=== PATIENT | female | born 1990 | race American Indian/Alaskan Native ===

== ENCOUNTER 2020-11-29 15:20 | Emergency (ER) | payer BC ==
[2020-11-29] MEDS ORDERED: methylPREDNISolone Sod Succinate 125 MG/2 ML INJ IV ONE (15:21)
[2020-11-29] MEDS ORDERED: diphenhydrAMINE 50 MG/ML VIAL IV ONE (15:21)
[2020-11-29] MEDS ORDERED: FAMOTIDINE 20 MG/2 ML INJ IV ONE (15:21)
[2020-11-29] MEDS ORDERED: EPINEPHrine/PF 1 MG/1 ML INJ IM ONE (15:23)
--- NOTE | 2020-11-29 15:26 | Event Note ---
ED Screening Note Date of service: 11/29/20 Time: 15:24 ED Screening Note: 30-year-old female patient with history of severe peanut allergy requiring EpiPen administration presents to the emergency department with complaints of itching and facial swelling after accidentally ingested peanut sauce 2 hours ago. Patient does not have her EpiPen with her. She took Benadryl 1 hour ago with limited relief. Tachycardic in triage. General: Awake, appropriately interactive, no acute distress. HEENT: Uvula is midline and nonedematous. Tongue appears slightly enlarged however she is protecting her airway, speaking in full sentences without difficulty. Facial swelling with minimal overlying erythema. Neck: Supple. Full range of motion intact. Cardiovascular: Tachycardic. Normal peripheral perfusion. Pulmonary: No respiratory distress. No wheezing or stridor. Neurological: No facial asymmetry. Speech is clear. Follows commands. Patient is alert and oriented. Musculoskeletal: Moves all four extremities spontaneously with normal range of motion. Psych: Cooperative. Appropriate mood and affect. Epinephrine, steroids, and histamine blockers ordered immediately following medical screening examination. I have greeted and performed a focused rapid initial assessment of this patient. A comprehensive ED assessment and evaluation of the patient, analysis of all test results, and completion of the medical decision-making process will be conducted by additional ED providers. This initial assessment/diagnostic orders/clinical plan/treatment(s) is/are subject to change based on patients health status, clinical progression and re-assessment. Further treatment and workup at subsequent clinical provider's discretion. Patient/guardian urged not to elope from the ED as their condition may be serious if not clinically assessed and managed.
--- NOTE | 2020-11-29 16:20 | Emergency Department Report ---
ED Allergic Reaction HPI - General Chief complaint: Allergic Reaction Stated complaint: ALLERGIC REACTION Time Seen by Provider: 11/29/20 16:03 Source: patient Mode of arrival: Ambulatory Limitations: No Limitations - History of Present Illness Initial Comments: 30 year old female with known allergy to peanuts presents to ED with complaints of having allergic reaction. Patient states that today around 1pm she started with allergic reaction after eating food that contained peanut oil. She states her co worker ordered food and she was not aware that the salad dressing contained peanut oil and immediately after eating it she started breaking out in hives and throat was itching. She states she took 1 benadryl as well as 3 "gulps" of children's benadryl but despite that she continued to develop more symptoms including dry cough, wheezing and sensation her throat was closing and so she decided to come to hospital. Patient states her epi pen is . Complaint: allergic reaction, hives -: Sudden (about 1pm this afternoon ) - Related Data Previous Rx's Medication Instructions Recorded Last Taken Type Famotidine [Pepcid] 20 mg PO BID #10 tablet 11/29/20 Unknown Rx diphenhydrAMINE [Benadryl CAP] 25 - 50 mg PO Q6HR PRN #30 capsule 11/29/20 Unknown Rx predniSONE [Deltasone] 60 mg PO QDAY #12 tab 11/29/20 Unknown Rx Allergies Allergy/AdvReac Type Severity Reaction Status Date / Time peanut Allergy Anaphylaxis Verified 11/29/20 15:30 ED Review of Systems ROS: Stated complaint: ALLERGIC REACTION Other details as noted in HPI Comment: All other systems reviewed and negative Constitutional: denies: chills, fever Eyes: denies: eye pain, eye discharge, vision change ENT: other (sensation that throat closing and throat itching ). denies: ear pain, throat pain, dental pain, hearing loss Respiratory: cough, wheezing. denies: orthopnea, shortness of breath, SOB with exertion, SOB at rest, stridor Cardiovascular: denies: chest pain, palpitations, dyspnea on exertion, orthopnea, edema, syncope, paroxysmal nocturnal dyspnea Gastrointestinal: denies: abdominal pain, nausea, diarrhea, constipation, hematemesis, melena, hematochezia Genitourinary: denies: urgency, dysuria, discharge Musculoskeletal: denies: back pain, joint swelling, arthralgia Skin: pruritus. denies: rash, lesions, change in color, change in hair/nails Neurological: denies: headache, weakness, numbness, paresthesias, confusion, abnormal gait, vertigo Psychiatric: denies: anxiety, depression, auditory hallucinations, visual hallucinations, homicidal thoughts, suicidal thoughts Hematological/Lymphatic: denies: easy bleeding, easy bruising ED Past Medical Hx - Medications Home Medications: Home Medications Medication Instructions Recorded Confirmed Last Taken Type Famotidine [Pepcid] 20 mg PO BID #10 tablet 11/29/20 Unknown Rx diphenhydrAMINE [Benadryl CAP] 25 - 50 mg PO Q6HR PRN #30 capsule 11/29/20 Unknown Rx predniSONE [Deltasone] 60 mg PO QDAY #12 tab 11/29/20 Unknown Rx ED Physical Exam - General Limitations: No Limitations General appearance: alert, in no apparent distress - Head Head exam: Present: atraumatic, normocephalic, normal inspection - Eye Eye exam: Present: normal appearance, PERRL, EOMI Pupils: Present: normal accommodation - ENT ENT exam: Present: normal exam, normal orophraynx, mucous membranes moist, other (mild erythema and swelling to exerternal ear ) - Neck Neck exam: Present: normal inspection, full ROM. Absent: meningismus - Respiratory Respiratory exam: Present: normal lung sounds bilaterally. Absent: respiratory distress, wheezes, rales, rhonchi - Cardiovascular Cardiovascular Exam: Present: regular rate, normal rhythm, normal heart sounds - Neurological Exam Neurological exam: Present: alert, oriented X3, CN II-XII intact, normal gait - Psychiatric Psychiatric exam: Present: normal affect, normal mood - Skin Skin exam: Present: urticaria (mild noted face.) ED Course Vital Signs 11/29/20 11/29/20 15:31 17:42 Temperature 98.0 F Pulse Rate 111 H 91 H Respiratory 22 15 Rate Blood Pressure 142/66 96/62 [Right] O2 Sat by Pulse 99 98 Oximetry ED Medical Decision Making - Medical Decision Making 30 year old female with known allergy to peanuts presents to ED with complaints of having allergic reaction. Patient states that today around 1pm she started with allergic reaction after eating food that contained peanut oil. She states her co worker ordered food and she was not aware that the salad dressing contained peanut oil and immediately after eating it she started breaking out in hives and throat was itching. She states she took 1 benadryl as well as 3 "gulps" of children's benadryl but despite that she continued to develop more symptoms including dry cough, wheezing and sensation her throat was closing and so she decided to come to hospital. Patient states her epi pen is . Pt was placed in room and given IV benadryl, pepcid, solumedrol and epi prior to me seeing her. Some of her symptoms had improved after the medications. At the time of my exam, patient had some mild erythema to ears as well as some mild swelling and some mild urticarial areas to her face but otherwise no tongue, lip or throat or any other facial swelling, and the rest of the body showed no hives, or swelling. She was resting comfortably and not in any respiratory distress and no stridor. We will observe patient for another 1 to 2 hours. 1756: Patient resting comfortably and feeling better. No worsening of her symptoms since she is gotten the meds. She is not in any pain or respiratory distress. No stridor. Airway intact. No facial swelling noted. She is not toxic or ill-appearing. She is neurologically intact with a normal gait in the ER. Repeat vital signs are stable. No additional testing/work-up indicated at this time. Alisa diagnosis, and treatment plan with patient. She expressed understanding of instructions and agree with plan. Patient was stable at time of discharge Critical care attestation.: If time is entered above; I have spent that time in minutes in the direct care of this critically ill patient, excluding procedure time. ED Disposition Clinical Impression: Allergic reaction to food Disposition: DC-01 TO HOME OR SELFCARE Is pt being admited?: No Does the pt Need Aspirin: No Condition: Stable Instructions: Food Allergy, [id number] Additional Instructions: Continue taking Benadryl every 4-6 hours for any itching, rash or swelling. Take the prednisone daily as prescribed but start tomorrow and take the Pepcid twice a day as prescribed. Recommend that she also get the EpiPen filled and carry with you at all times. Follow-up closely with your primary care physician. Return to the ER if your symptoms changes or worsens in any way. Prescriptions: diphenhydrAMINE [Benadryl CAP] 25 - 50 mg PO Q6HR PRN #30 capsule PRN Reason: itching/swelling predniSONE [Deltasone] 60 mg PO QDAY #12 tab Famotidine [Pepcid] 20 mg PO BID #10 tablet Referrals: KING PETERSON MD [Staff Physician] - 3-5 Days Forms: Work/School Release Form(ED) Time of Disposition: 17:56
[2020-11-29 17:42] VITALS: BP 96/62
== END 2020-11-29 18:20 | disposition home or self-care (01) ==
LOC: ED 15:20
DX: T78.1XXA Other adverse food reactions, not elsewhere classified, initial encounter (principal); R22.0 Localized swelling, mass and lump, head; Z79.899 Other long term (current) drug therapy; Z91.010 Allergy to peanuts; X58.XXXA Exposure to other specified factors, initial encounter
CPT/HCPCS: 96372; 96374; 96375; 99282; J0171; J1200; J2930